=== PATIENT | male | born 1950 | race Caucasian/White ===

== ENCOUNTER 2023-01-28 16:25 | Emergency (ER) | payer MEDICARE, BC ==
[2023-01-28 16:51] VITALS: BP 157/89; PULSE 80
[2023-01-28] MEDS ORDERED: HYDROmorphone 1 MG/ML Syringe IM ONE (17:54)
[2023-01-28] MEDS ORDERED: Orphenadrine 100 MG Tab.ER PO ONE (18:56)
[2023-01-28] MEDS ORDERED: Ketorolac 30 MG/ML SDV IM ONE (18:56)
== END 2023-01-28 19:45 | disposition home or self-care (01) ==
LOC: JD.ED 16:25
DX: S51.012A Laceration without foreign body of left elbow, initial encounter (principal); S30.0XXA Contusion of lower back and pelvis, initial encounter; Z87.891 Personal history of nicotine dependence; Z88.8 Allergy status to other drugs, medicaments and biological substances; W11.XXXA Fall on and from ladder, initial encounter
CPT/HCPCS: 72131; 73080; 96372; 99284; A9270; J1170; J1885; 99283